=== PATIENT | male | born 1990 | race African-American/Black ===

== ENCOUNTER 2018-06-26 23:13 | Emergency (ER) | payer MEDICAID ==
[~2018-06-26] VITALS: Ht 182.9 cm; Wt 108.9 kg
[2018-06-26 23:31] VITALS: BP 130/74
--- NOTE | 2018-06-26 23:36 | Emergency Room Report ---
History of Present Illness General Chief Complaint: Upper Extremity Injury Source: Patient Present Illness HPI The patient presents with left shoulder pain. He was wrestling with somebody, denies assault. He's dislocated his shoulder once before when his very young. He feels like it's dislocated this time. Also feels some numbness in the upper outer arm. There was no loss of consciousness and he denies any chest pain. He 's tried to reduce it since it happened. He does not want opiates or medicine to make him sleepy. The patient is right-handed Last ate 6 hours ago. No fevers, NVD, abdominal pain, rashes. Allergies: Coded Allergies: No Known Allergies (Unverified , 06/26/18) Patient History Past Medical History: see triage record Social History: Denies: smoking Social History Narrative security Reviewed Nursing Documentation: PMH: Agreed; PSxH: Agreed Nursing Documentation-PMH Past Medical History: No Stated History Review of Systems Constitutional: Reports: see HPI Respiratory: Denies: shortness of breath Cardiovascular: Reports: see HPI Gastrointestinal: Reports: see HPI Musculoskeletal: Reports: see HPI Skin: Denies: rash Neurological: Reports: see HPI Physical Exam Vital Signs Date Time Temp Pulse Resp B/P (MAP) Pulse Ox O2 Delivery O2 Flow Rate FiO2 06/26/18 23:17 99.5 67 16 130/74 96 Room Air Sp02 EP Interpretation: reviewed, normal General Appearance: well appearing, no apparent distress, GCS 15 Head: normocephalic Eyes: bilateral eye normal inspection, bilateral eye PERRL ENT: moist mucus membranes Neck: supple Respiratory: chest non-tender, lungs clear, normal breath sounds Cardiovascular #1: regular rate, rhythm Cardiovascular #2: 2+ radial (L) - good cap fill Gastrointestinal: normal inspection, overweight Musculoskeletal: other - dimpling of AC joint area and unable to lift shoulder , tender - L shoulder Neurologic: alert, oriented x3, motor strength/tone normal, other - alleged some numbness deltoid area Psychiatric: mood/affect normal Skin: normal inspection, warm/dry Procedures Joint Reduction Joint Reduction : Consent: Verbal Joint Reduction Site: shoulder (L) Procedural Sedation: No Reduction Attempts: One Pre-Procedure NV Exam: Yes Post-Procedure NV Exam: Yes Post Joint Reduction Film: joint reduced - no fx Patient Tolerated: Well Complications: None Progress Patient refuses sedation or further analgesia. Shoulder reduced with raising hand and adduction with external rotation of forearm. Tolerated well. Medical Decision Making Diagnostic Impression: Primary Impression: Shoulder dislocation Qualified Codes: S43.005A - Unspecified dislocation of left shoulder joint, initial encounter ER Course Clinically the patient has a dislocated left shoulder. I offered to give him analgesia and he is refusing everything except for Motrin. We will obtain x- rays and see if he needs to have the shoulder reduced. Anterior dislocation. Shoulder reduced. Post reduction film without fx, good anatomic reduction. Sling applied by tech. Position excellent. Less numbness deltoid, otherwise normal neurovasc as checked by me. Discussed need for ortho follow up. Patient stable for outpatient observation and treatment. Other X-Ray Diagnostic Results Other X-Ray Diagnostic Results #1: X-Ray ordered: L shoulder Indication: Pain EP Interpretation: Yes Interpretation: no soft tissue swelling, no fractures, other - anterior dislocation Impression: Other Electronically Signed by: Hi Rosenberg MD Other X-Ray Diagnostic Results #2: X-Ray ordered: L shoulder # of Views/Limited Vs Complete: 1 View Indication: Other EP Interpretation: Yes Interpretation: no dislocation, no soft tissue swelling, no fractures Impression: No acute disease Electronically Signed by: Hi Rosenberg MD Last Vital Signs Date Time Temp Pulse Resp B/P (MAP) Pulse Ox O2 Delivery O2 Flow Rate FiO2 06/27/18 02:35 99.1 84 16 128/76 98 Room Air Status: improved Disposition: HOME, SELF-CARE Condition: Improved Scripts Ibuprofen* (MOTRIN*) 600 Mg Tablet 600 MG ORAL Q6H PRN for For Pain, #20 TAB Prov: Hi Rosenberg MD 06/27/18 Hi Rosenberg MD Jun 26, 2018 23:36
--- NOTE | 2018-06-27 01:26 | Diagnostic Imaging Report ---
EXAM: XR Left Shoulder Complete, 2 or More Views CLINICAL HISTORY: POST-OP TECHNIQUE: Two or more views of the left shoulder. COMPARISON: No relevant prior studies available. FINDINGS: Bones/joints: Anterior dislocation of the left shoulder with the humeral head perched on the inferior aspect of the glenoid. Hill-Sachs deformity is noted about the posterolateral aspect of the left humeral head. No acute fracture. Soft tissues: Unremarkable. IMPRESSION: Anterior dislocation of the left shoulder with the humeral head perched on the inferior aspect of the glenoid.
[2018-06-27] MEDS ORDERED: IBUPROFEN600 MG ORAL (02:26)
[2018-06-27 02:30] VITALS: BP 128/74
[2018-06-27 02:35] VITALS: BP 128/76
== END 2018-06-27 02:35 | disposition home or self-care (01) ==
LOC: EMR 23:29
DX: S43.005A Unspecified dislocation of left shoulder joint, initial encounter (principal); Y93.72 Activity, wrestling
CPT/HCPCS: 23650; 73020; 73030; 99283; Z7502